=== PATIENT | male | born 1995 | race Caucasian/White ===

== ENCOUNTER → 2023-06-30 | Outpatient (CLI) | payer OTHER ==
[~2023-06-30] MED LIST: LISI10TA24 PO
== END ==
LOC: M EKG 14:59
PROVIDERS: ATTEND Anesthesiology
DX: Z01.818 Encounter for other preprocedural examination (principal)

== ENCOUNTER 2023-07-06 08:17 | Day surgery (SDC) | payer OTHER ==
[~2023-07-06] VITALS: Ht 172.7 cm; Wt 89.7 kg
[~2023-07-06 08:17] MED LIST changes: +EPINEPHrine INJ 1 MG/ML 1ML AMP PN ONE; +LIDOCAINE 1% SDV 5ML VIAL PN ONE; +ROPIvacaine 0.5% 30ML VIAL PN ONE; +TRANEXAMIC ACID 100 MG/ML 10ML VIAL IV ONE; +dexAMETHasone 10MG/1ML VIAL PRES.FREE PN ONE
[2023-07-06] MEDS: LR 1,000 ML IV SCH (09:10)
[2023-07-06 09:39] LABS: BLOOD UREA NITROGEN 18 MG/DL (9-23); CALCIUM LEVEL 9.5 MG/DL (8.5-10.1); CARBON DIOXIDE LEVEL 29 MMOL/L (20-31); CHLORIDE LEVEL 103 MMOL/L (98-107); CREATININE FOR GFR 1.01 MG/DL (0.70-1.30); GLOMERULAR FILTRATION RATE > 60.0 (>60); GLUCOSE, FASTING 95 MG/DL (60-100); POTASSIUM SERUM 4.1 MMOL/L (3.5-5.1); SODIUM LEVEL 137 MMOL/L (136-145)
[2023-07-06] MEDS ORDERED: ACETAMINOPHEN 1000MG 100ML IV BAG As Ordered ONE (10:24)
[2023-07-06] MEDS ORDERED: ONDANSETRON 4MG 2ML VIAL As Ordered ONE (10:25)
[2023-07-06] MEDS ORDERED: propofoL 200 MG/20 ML VIAL As Ordered ONE (10:25)
[2023-07-06] MEDS ORDERED: ROCURONIUM BROMIDE 50MG/5ML VIAL As Ordered ONE (10:25)
[2023-07-06] MEDS ORDERED: LIDOCAINE 2% 100MG/5ML SDV (FOR ANES.) As Ordered ONE (10:25)
[2023-07-06] MEDS ORDERED: SUGAMMADEX SODIUM 500 MG/5 ML VIAL (BRIDION) As Ordered ONE (10:25)
[2023-07-06] MEDS ORDERED: KETOROLAC 60MG 2ML VIAL As Ordered ONE (10:25)
[2023-07-06] MEDS ORDERED: HYDROmorphone HCL 2MG/ML 1ML VIAL As Ordered ONE (10:27)
[2023-07-06] MEDS ORDERED: fentaNYL 100 MCG/2 ML INJECTION As Ordered ONE (10:27)
[2023-07-06] MEDS ORDERED: EPINEPHrine 1MG/ML INJ 30ML MD-VIAL As Ordered ONE (10:52)
[2023-07-06] MEDS: fentaNYL 100 MCG/2 ML INJECTION IV PRN (13:03)
[2023-07-06] MEDS: MIDAZOLAM INJ 2MG/2ML VIAL IV PRN (13:03)
[2023-07-06] MEDS: ceFAZolin SOD 2 GM in IV 1 EA IV ONE (13:35)
[2023-07-06] MEDS ORDERED: TRANEXAMIC ACID 100 MG/ML 10ML VIAL As Ordered ONE (14:50)
[2023-07-06] MEDS ORDERED: ONDANSETRON 4MG 2ML VIAL IV PRN (17:20)
[2023-07-06] MEDS ORDERED: fentaNYL 100 MCG/2 ML INJECTION IV PRN (17:20)
[2023-07-06] MEDS ORDERED: MORPHINE 2 MG/ML 1ML VIAL IV PRN (17:20)
[2023-07-06] MEDS: PROMETHAZINE 25MG/ML 1ML VIAL IV PRN (17:47)
[2023-07-06] MEDS: oxyCODONE 5MG TAB PO PRN (18:18)
[2023-07-06 19:45] VITALS: BP 151/82; TEMP 97.7; O2SAT 97
== END 2023-07-06 20:02 | disposition home or self-care (01) ==
LOC: M SDC 08:17
PROVIDERS: ATTEND Orthopaedic Surgery
DX: M24.412 Recurrent dislocation, left shoulder (principal); Z79.899 Other long term (current) drug therapy
CPT/HCPCS: 23430; 29807; 36415; 80048; C1713; J0131; J0171; J0690; J1100; J1170; J1885; J2250; J2405; J2550; J3010